=== PATIENT | female | born 1945 | race Caucasian/White ===

== ENCOUNTER 2018-07-12 13:43 | Emergency (ER) | payer OTHER ==
[~2018-07-12] VITALS: Ht 152.4 cm; Wt 90.7 kg
== END 2018-07-12 20:08 | disposition home or self-care (01) ==
LOC: ER 13:43
DX: R42 Dizziness and giddiness (principal); D32.0 Benign neoplasm of cerebral meninges

== ENCOUNTER 2024-06-22 07:42 | Outpatient (CLI) | payer OTHER | END 2024-06-22 07:43 | disposition home or self-care (01) | LOC: NUCLEAR 07:42 | PROVIDERS: ATTEND Specialist | DX: C7A.090 Malignant carcinoid tumor of the bronchus and lung (principal) | CPT/HCPCS: 78815; A9552 ==